=== PATIENT | female | born 1935 | race Caucasian/White ===

== ENCOUNTER 2018-07-05 08:28 | Outpatient (CLI) | payer MEDICARE ==
[2018-07-05] MEDS ORDERED: ISOVUE-370 76%-LOCM 1 ML ONE (10:09)
--- NOTE | 2018-07-05 13:51 | CT ---
CT CHEST AND ABDOMEN AND PELVIS PERFORMED WITH CONTRAST ENHANCEMENT: HISTORY: The patient reports a history of colon cancer three years ago, for which he had surgery, chemotherapy , and radiation. Also states right breast cancer with chemotherapy and radiation. The patient has a rising CEA. COMPARISON: CT abdomen and pelvis from 07/06/2015. There are no prior CT chests available for comparison. FINDINGS: CHEST: The lungs are clear of any infiltrative process. There are some parenchymal changes involvin g the right middle lobe, which appear to represent some scarring. There is also some minimal scar in the right lower lobe. There are no pulmonary nodules identified or pleural effusions. There is no significant mediastinal or hilar adenopathy. There are coronary artery calcifications pr esent. A left-sided Mediport catheter is also noted. Calcification associated with the left breast is seen. Also, calcifications within both the right and left breast are seen. No significant axilla ry adenopathy. ABDOMEN: There has been development of multiple liver lesions since the previous examination. There are two hypodense lesions, one within the right lobe, on axial image 55, and a second subtle density on axial image 62. These were present on the prior study and probably represent tiny cysts; however , there are other masses now present within both the right and left lobes. On the left side, one of the larger lesions is 16 mm in size. On the right side, there are several ill-defined masses, closer to the dome region of the liver, which are difficult to define in size. Probably one of the larger is on the lateral aspect of the right lobe, and it measures as much as 2.4 cm. The spleen shows a stable hypodense lesion involving the anterior margin. The pancreas shows no mass or ductal dilatation. There is a gallstone present. The right and left adrenal glands are normal in appearance. The right kidney is slightly malrotated. It has multiple hypodense lesions, which are felt to be stable, as compared to the prior study. Th e mid to upper pole left renal mass, which had fatty elements in it, is again noted and is actually s maller in size, as compared to the prior examination, now measuring 3.6 cm in diameter, but is still consistent with an angiomyolipoma. There has been development of moderate left-sided hydronephrosis and hydroureter. There is a left renal calculus now seen; however, the hydronephrosis is related to pathologic left periaortic adenopathy. The largest of these nodes lies directly anterior to the aort ic bifurcation, measuring 3.1 cm in size. I do not definite appreciate the gastrohepatic lymph node that was seen on the previous examination. PELVIS: There are some subcentimeter common iliac chain lymph nodes present. None of these appear p athologically enlarged. An anastomotic suture line is seen within the sigmoid colon. The bladder is not fully distended on this examination. Review of the osseous structures shows marked arthritic changes of the hip region. I do not see any suspicious lytic or blastic bony change. IMPRESSION: 1. Evidence of new metastatic disease with multiple liver lesions now identified, as well as patholo gic periaortic adenopathy. The periaortic adenopathy is associated with obstruction of the left kidn ey with moderate left-sided hydronephrosis and hydroureter to a conglomeration of nodes located near the aortic bifurcation. 2. Gallstone. 3. Angiomyolipoma of the left kidney, actually slightly smaller than the prior examination. 4. Nonobstructing left renal calculus, 4 to 5 mm in size. 5. Stable splenic lesion, probably a cyst. 6. Postoperative changes of the sigmoid colon. 7. No evidence of lung metastases. POS: YECENIA
== END 2018-07-05 08:29 | disposition home or self-care (01) ==
LOC: BICCT 08:28
PROVIDERS: ATTEND Internal Medicine Hematology & Oncology
DX: C50.911 Malignant neoplasm of unspecified site of right female breast (principal); C18.9 Malignant neoplasm of colon, unspecified; C78.7 Secondary malignant neoplasm of liver and intrahepatic bile duct; R59.0 Localized enlarged lymph nodes; K80.20 Calculus of gallbladder without cholecystitis without obstruction; D17.71 Benign lipomatous neoplasm of kidney; D73.89 Other diseases of spleen; N13.2 Hydronephrosis with renal and ureteral calculous obstruction; N13.4 Hydroureter; Z98.890 Other specified postprocedural states
CPT/HCPCS: 71260; 74177; 82565; Q9966

== ENCOUNTER 2018-10-04 08:50 | Outpatient (CLI) | payer MEDICARE ==
--- NOTE | 2018-10-04 10:28 | CT ---
CT OF THE ABDOMEN AND PELVIS WITH IV CONTRAST: INDICATION: History of colon cancer. COMPARISON: Prior CT of the chest, abdomen, and pelvis dated 07/05/2018. FINDINGS: The lung bases demonstrate some subsegmental volume loss within the lingula and right middle lobe. T here are prominent mitral annular calcifications. The calcified nodular density within the right betsy ast appears stable. Numerous scattered hepatic metastatic lesions have slightly decreased in size. Index nodule within t he medial left hepatic lobe previously measured 1.6 cm and now measures 1.1 cm. Index nodule within the segment 6 of the right hepatic lobe now measures 1.2 cm where it previously measured approximatel y 2.1 cm. The 3 cm left adrenal adenomyolipoma is stable. Bilateral renal cysts are stable. There is improvem ent in the left-sided hydronephrosis, now moderate in severity. The paraaortic lymphadenopathy with surrounding fibrosis is decreased in size now measuring 2.3 x 3.7 cm where previously it measured 3.1 x 4.8 cm. The additional enlarged left paraaortic lymph node pr eviously measuring 2.4 cm now measures 1.7 cm. This is best seen on image 47 of series 2. There is scattered diverticula present involving the colon. Postsurgical change of partial colectomy is stable. The adnexa within the lower pelvis is similar-appearing. The bladder is partially decom pressed. The rectum and perirectal soft tissues are unremarkable-appearing. There is a normal appendix in the right lower quadrant. No pathologically enlarged lymph nodes are evident within the pelvis. There is scattered degenerative and osteoarthritic change. IMPRESSION: 1. Findings consistent with response to therapy. The hepatic metastatic disease and retroperitoneal lymphadenopathy have decreased in size from the most recent comparison dated 07/05/2018. The amount of scarring and fibrosis inducing left-sided hydronephrosis from the left paraaortic lymphadenopathy has also improved. There is now moderate left hydronephrosis involving the left renal collecting sys tem. 2. Stable cholelithiasis, left renal angiomyelipoma, bilateral renal cysts, colonic diverticulosis, and postoperative change of a partial colectomy. POS: OFF
[2018-10-04] MEDS ORDERED: ISOVUE-370 76%-LOCM 1 ML ONE (11:22)
== END 2018-10-04 08:51 | disposition home or self-care (01) ==
LOC: BICCT 08:50
PROVIDERS: ATTEND Internal Medicine Hematology & Oncology
DX: C18.7 Malignant neoplasm of sigmoid colon (principal); R11.2 Nausea with vomiting, unspecified; C78.7 Secondary malignant neoplasm of liver and intrahepatic bile duct; R59.0 Localized enlarged lymph nodes; K80.20 Calculus of gallbladder without cholecystitis without obstruction; N13.30 Unspecified hydronephrosis; N28.1 Cyst of kidney, acquired; D17.71 Benign lipomatous neoplasm of kidney; K57.30 Diverticulosis of large intestine without perforation or abscess without bleeding; Z98.890 Other specified postprocedural states; Z85.3 Personal history of malignant neoplasm of breast
CPT/HCPCS: 74177; Q9966

== ENCOUNTER 2019-01-30 08:30 | Outpatient (CLI) | payer MEDICARE ==
--- NOTE | 2019-01-30 09:59 | CT ---
CT ABDOMEN AND PELVIS WITH IV CONTRAST 01/30/2019 CLINICAL INFORMATION: Colon cancer. COMPARISON: 10/04/2018 Technique: Multiple contiguous axial CT images are obtained through the abdomen and pelvis with IV contrast. Cor onal reformatted images are provided. FINDINGS: Lower Chest: Again noted are linear densities in the lingula and right middle lobe likely attributabl e to atelectasis versus mild scarring. No pulmonary nodule or pleural effusion is seen in either lung base. A tiny pericardial effusion is again present. Vessels: Vascular calcifications are again seen in the abdominal aorta and involving the iliac arteri es. Abdomen: Portal vein:Patent Gallbladder: Gallbladder calculus is again seen. Liver: Scattered hypodense lesions are again seen in each lobe of the liver. Largest lesion on the pr ior study in the lateral segment left hepatic lobe measures 11 mm and now measures approximately 9 mm. Lesion in the posterior dome of the liver previously measured 14 mm in greatest dimensions and no w measures 12 mm. No new hypodense hepatic lesions are seen. The additional hypodense lesions in the liver are overall stable to minimally decreased in size. Spleen: Splenic granuloma is again seen. There is a stable hypodense fluid attenuation lesion at the anterior aspect body of the spleen similar to the prior exam and may be related to a splenic cyst. Pancreas: within normal limits. Adrenals: within normal limits. Kidneys: Subcentimeter too small to characterize hypodense lesions in each kidney are again seen. The large exophytic angiomyolipoma the superior pole left kidney is again seen and not safely changed in size. Bowel: There is colonic diverticulosis. Postsurgical changes in the region of the rectosigmoid juncti on are seen with anastomosis present. Loops of small bowel are normal in caliber. Appendix: The appendix is visualized and normal in caliber. Peritoneum: No ascites or free air; no fluid collection. Mesentery and Retroperitoneum: Again noted is the para-aortic lymphadenopathy with mild inflammatory stranding. The largest lymph node seen just distal to the aortic bifurcation and anterior to the left common iliac artery measures 3 cm transverse X 1.7 cm AP with previous measurement of 3.8 cm x 2 .3 cm. There is a left para-aortic lymph node on the prior exam measuring 1.7 cm in greatest dimension and now measures 1.3 cm. The stranding is also seen inferior to the larger lymph node just distal to the aortic bifurcation which extends anteriorly and just superior to the level of the colonic anastomosis. This is a stable finding. Abdominal Wall: Midline infraumbilical scarring is present. Pelvis: Reproductive Organs: Evidence of hysterectomy. There is nonspecific prominence of the gonadal veins b ilaterally, but this is unchanged from prior study. Pelvis: no free fluid or mass is seen. There is minimal nonspecific perirectal stranding similar to p rior study. Bladder: within normal limits. Bones: There is bilateral hip osteoarthritis with prominent lucency seen in the supra-acetabular carter on on the right likely representing a large subchondral cyst. Degenerative changes are seen in the spine. No suspicious lytic or sclerotic osseous lesions are identified. IMPRESSION: 1. Improvement in metastatic disease with mild decrease in size of hypodense hepatic lesions as well as mild decrease in size of para-aortic lymphadenopathy. Associated mild linear stranding and fibrosis associated with the para-aortic lymphadenopathy is minimally improved as well. 2. Left renal angiomyolipoma stable in size measuring approximately 3.1 cm. 3. Colonic diverticulosis and postoperative changes of the colon with anastomosis in the region of th e rectosigmoid junction. 4. Cholelithiasis.
[2019-01-30] MEDS ORDERED: ISOVUE-370 76%-LOCM 1 ML ONE (16:12)
== END 2019-01-30 08:31 | disposition home or self-care (01) ==
LOC: BICCT 08:30
PROVIDERS: ATTEND Internal Medicine Hematology & Oncology
DX: C18.7 Malignant neoplasm of sigmoid colon (principal); K76.9 Liver disease, unspecified; K57.30 Diverticulosis of large intestine without perforation or abscess without bleeding; K80.20 Calculus of gallbladder without cholecystitis without obstruction; D17.71 Benign lipomatous neoplasm of kidney; K63.89 Other specified diseases of intestine; R59.0 Localized enlarged lymph nodes
CPT/HCPCS: 74177; Q9966

== ENCOUNTER 2019-08-18 09:27 | Outpatient (CLI) | payer MEDICARE ==
--- NOTE | 2019-08-18 11:50 | CT ---
CT ABDOMEN AND PELVIS WITH ORAL AND IV CONTRAST: HISTORY: Malignant neoplasm of sigmoid colon. Personal history of malignant neoplasm of breast. Nausea with vomiting, unspecified. COMPARISON: 01/30/2019. FINDINGS: Mild chronic changes in the lung bases are again seen. The previously noted 9 mm lesion in the left lobe of the liver is smaller, currently measuring about 5 mm. The remainder of the low-density lesio ns in the liver are otherwise stable. Calcified gallstone is again seen. Tiny pericardial effusion is again noted. The 2 cm cyst in the anterior aspect of the spleen is stable. Pancreas and adrenal glands are normal . Subcentimeter too small to characterize hypodense lesions in the kidneys are again seen. The appr oximately 3 cm exophytic angiomyolipoma arising from the superior pole of the left kidney is stable. No free air or free fluid is seen in the abdomen or pelvis. The small bowel loops are not abnormally dilated. A normal-appearing appendix is seen. There is colonic diverticulosis. Postop changes in the region of the rectosigmoid are redemonstrated. There are vascular calcifications without evidence of aneurysmal dilatation of the abdominal aorta. There are degenerative changes in the spine. No osteolytic or osteoblastic lesions are seen. The patient is posthysterectomy. Periaortic and common iliac lymphadenopathy is stable. IMPRESSION: Mild reduction in size of the left liver lobe lesion since 01/30/2019; otherwise, stable exam. POS: YECENIA
[2019-08-18] MEDS ORDERED: Iopamidol-370 76% 500 ML 1 ML ONE (14:50)
== END 2019-08-18 09:28 | disposition home or self-care (01) ==
LOC: BICCT 09:27
PROVIDERS: ATTEND Internal Medicine Hematology & Oncology
DX: C18.7 Malignant neoplasm of sigmoid colon (principal); K76.9 Liver disease, unspecified
CPT/HCPCS: 74177; Q9967